=== PATIENT | male | born 1935 | race Caucasian/White ===

== ENCOUNTER 2016-05-29 06:46 | Inpatient (IN) | payer MEDICARE, OTHER ==
[~2016-05-29] VITALS: Ht 177.8 cm; Wt 119.1 kg
[~2016-05-29 06:46] MED LIST: ELIQUIS PO; INHALERS FOR ASTHMA PO
[2016-05-29] MEDS ORDERED: THROMBIN 5,000 UNIT VIAL TP ONE (07:11)
[2016-05-29] MEDS ORDERED: BACITRACIN 50,000 UNIT ONE (07:11)
[2016-05-29] MEDS ORDERED: BUPIVACAINE/PF-EPI 0.5% 1:200K ONE (07:11)
[2016-05-29] MEDS ORDERED: MIDAZOLAM 1 MG/ML, 2ML ONE (08:13)
[2016-05-29] MEDS ORDERED: FENTANYL PF 250 MCG/5ML ONE (08:14)
[2016-05-29 08:29] VITALS: BP 132/82
[2016-05-29] MEDS ORDERED: LACTATED RINGERS 1,000 ML IV SCH (08:29)
[2016-05-29] MEDS ORDERED: LIDOCAINE 1%, 2ML SQ PRN (08:30)
[2016-05-29] MEDS ORDERED: ZOLP10TA PO (08:36)
[2016-05-29] MEDS ORDERED: OXYC5CAP4 PO (08:36)
[2016-05-29] MEDS ORDERED: IPRA4AER INH (08:36)
[2016-05-29] MEDS ORDERED: MOME13HF3 INH (08:36)
[2016-05-29] MEDS ORDERED: GUAI200T3 PO (08:36)
[2016-05-29] MEDS ORDERED: APIX2.5T PO (08:36)
[2016-05-29] MEDS ORDERED: GLYCOPYRROLATE 0.2MG/1ML ONE (09:49)
[2016-05-29] MEDS ORDERED: ROCURONIUM 10 MG/ML ONE (09:49)
[2016-05-29] MEDS ORDERED: PROPOFOL 10 MG/ML, 20ML ONE (09:49)
[2016-05-29] MEDS ORDERED: CEFAZOLIN 1,000 MG ONE (09:49)
[2016-05-29] MEDS ORDERED: NEOSTIGMINE 1 MG/ML, 10ML ONE (09:49)
[2016-05-29] MEDS ORDERED: MEPERIDINE/PF 25MG/0.5ML IVPush PRN (10:00)
[2016-05-29] MEDS ORDERED: FENTANYL PF 100 MCG/2ML IV PRN (10:00)
[2016-05-29] MEDS ORDERED: ONDANSETRON 2MG/ML, 2ML IVPush PRN (10:00)
[2016-05-29] MEDS ORDERED: OXYcodone 5 MG/5 ML ORAL.SOL UDC PO PRN (10:00)
[2016-05-29] MEDS ORDERED: HYDROmorphone 1 MG/ML, 1ML IV PRN (10:00)
[2016-05-29] MEDS ORDERED: hydrALAzine 20 MG/ML, 1ML IV PRN (10:00)
[2016-05-29] MEDS ORDERED: ACETAMINOPHEN 325 MG TABLET PO PRN (10:00)
[2016-05-29] MEDS ORDERED: PROMETHAZINE 25 MG/ML, 1ML IV PRN (10:00)
[2016-05-29] MEDS ORDERED: METOCLOPRAMIDE 5 MG/ML, 2ML IV PRN (10:00)
[2016-05-29] MEDS ORDERED: FENTANYL PF 100 MCG/2ML ONE (11:50)
[2016-05-29 12:54] LABS: IS PT STATUS REG ER OR PRE ER? NO
[2016-05-29] MEDS ORDERED: METHOCARBAMOL 750 MG TABLET PO PRN (14:30)
[2016-05-29] MEDS ORDERED: DIPHENHYDRAMINE 50 MG/ML, 1ML IM PRN (14:30)
[2016-05-29] MEDS ORDERED: DIPHENHYDRAMINE 50 MG CAPSULE PO PRN (14:30)
[2016-05-29] MEDS ORDERED: OXYcodone/APAP 5/325MG TABLET PO PRN (14:30)
[2016-05-29] MEDS ORDERED: ALBUTEROL/IPRATROPIUM 2.5MG/0.5MG, 3 ML HHN PRN (14:30)
[2016-05-29] MEDS ORDERED: HYDROmorphone 2MG TABLET PO PRN (14:30)
[2016-05-29] MEDS ORDERED: ONDANSETRON 2MG/ML, 2ML IV PRN (14:30)
[2016-05-29] MEDS ORDERED: PROMETHAZINE 25 MG/ML, 1ML IM PRN (14:30)
[2016-05-29] MEDS ORDERED: MAGNESIUM HYDROXIDE 8%, 30ML UDC PO PRN (14:30)
[2016-05-29] MEDS ORDERED: HYDROmorphone 2 MG/ML, 1ML IM PRN (14:30)
[2016-05-29] MEDS ORDERED: DIPHENHYDRAMINE 50 MG/ML, 1ML IVPush PRN (14:30)
[2016-05-29] MEDS ORDERED: BISACODYL 10 MG SUPP PR PRN (14:30)
[2016-05-29 14:34] VITALS: BP 115/71
[2016-05-29] MEDS: CEFAZOLIN PMX 1GM/50ML 50 ML IVPB SCH (15:17)
[2016-05-29] MEDS: NS + 20MEQ KCL 1,000 ML IV SCH (15:17)
[2016-05-29] MEDS ORDERED: METOPROLOL TARTRATE 25 MG TABLET PO SCH (19:00)
[2016-05-29 19:19] LABS: IS PT STATUS REG ER OR PRE ER? NO
[2016-05-29 20:00] VITALS: BP 136/82
[2016-05-29] MEDS: ATORVASTATIN 20 MG TABLET PO SCH (21:24)
[2016-05-29] MEDS: GUAIFENESIN 200 MG TABLET PO SCH (21:24)
[2016-05-29] MEDS: FLUTICASONE FUROATE 100MCG/INH INH SCH (22:15)
[2016-05-30 00:03] VITALS: BP 120/76
[2016-05-30] MEDS: CEFAZOLIN PMX 1GM/50ML 50 ML IVPB SCH (00:11)
[2016-05-30] MEDS: ZOLPIDEM 10MG TABLET PO PRN ×2 (00:11→22:10)
[2016-05-30] MEDS: NS + 20MEQ KCL 1,000 ML IV SCH ×2 (03:20→17:32)
[2016-05-30 03:30] VITALS: BP 134/82
[2016-05-30 07:33] VITALS: BP 124/72
[2016-05-30] MEDS ORDERED: ASPIRIN 325 MG TABLET PO SCH (09:00)
[2016-05-30] MEDS: SENNA/DOCUSATE TABLET PO SCH (09:46)
[2016-05-30] MEDS: METOPROLOL TARTRATE 25 MG TABLET PO SCH ×2 (09:46→17:32)
[2016-05-30] MEDS: GUAIFENESIN 200 MG TABLET PO SCH ×2 (09:46→21:09)
[2016-05-30 13:49] VITALS: BP 149/81
[2016-05-30] MEDS ORDERED: METOPROLOL TARTRATE 25 MG TABLET PO SCH (18:00)
[2016-05-30 19:07] VITALS: BP 117/73
[2016-05-30] MEDS: FLUTICASONE FUROATE 100MCG/INH INH SCH (21:07)
[2016-05-30] MEDS: ATORVASTATIN 20 MG TABLET PO SCH (21:09)
[2016-05-31 02:06] VITALS: BP 149/78
[2016-05-31] MEDS: NS + 20MEQ KCL 1,000 ML IV SCH (04:09)
[2016-05-31] MEDS: METOPROLOL TARTRATE 25 MG TABLET PO SCH (05:01)
[2016-05-31 06:17] LABS: BLOOD UREA NITROGEN 10 mg/dL (7-18)
[2016-05-31 07:16] VITALS: BP 135/80
[2016-05-31] MEDS: GUAIFENESIN 200 MG TABLET PO SCH (09:53)
[2016-05-31] MEDS: SENNA/DOCUSATE TABLET PO SCH (09:53)
[2016-05-31] MEDS ORDERED: OXYC-302 PO (11:33)
[2016-05-31] MEDS ORDERED: METO25TA35 PO (11:49)
== END 2016-05-31 11:58 | disposition home or self-care (01) | DRG 516 ==
LOC: OUT 06:46 → 5SO 14:09 → OUT 14:10 → 5SO 14:11 → DCLOUNGE 05-31 11:23
PROVIDERS: ADMIT Neurological Surgery; ATTEND Neurological Surgery
PROC: 01NB0ZZ Release Lumbar Nerve, Open Approach (ICD-10-PCS; principal; 2016-05-29 10:00)
DX: M48.06 Spinal stenosis, lumbar region (principal); I47.2 Ventricular tachycardia; M47.896 Other spondylosis, lumbar region; I10 Essential (primary) hypertension; I25.10 Atherosclerotic heart disease of native coronary artery without angina pectoris; J44.9 Chronic obstructive pulmonary disease, unspecified; R10.13 Epigastric pain; M19.90 Unspecified osteoarthritis, unspecified site; I25.5 Ischemic cardiomyopathy; Z79.01 Long term (current) use of anticoagulants; Z86.718 Personal history of other venous thrombosis and embolism; Z87.891 Personal history of nicotine dependence; Z88.0 Allergy status to penicillin; Z88.8 Allergy status to other drugs, medicaments and biological substances; Z91.041 Radiographic dye allergy status
CPT/HCPCS: 36415; 72110; 80048; 84484; 93005; C8929; J0690; J2250; J2270; J2704; J2710; J3010; J3480; J3490; J7120

== ENCOUNTER → 2020-08-18 | Outpatient (CLI) | payer OTHER ==
[~2020-08-18] MED LIST changes: +ALPRazolam 1MG TAB ONE; +APIX2.5T PO; +GUAI200T37 PO; +IPRA4AER INH; +METO25TA35 PO; +MOME13HF3 INH; +OXYC1TAB14 PO; +OXYC5CAP2 PO; +ZOLP10TA PO
== END | disposition home or self-care (01) ==
LOC: RAD 10:28
PROVIDERS: ATTEND Family Medicine
DX: M47.817 Spondylosis without myelopathy or radiculopathy, lumbosacral region (principal); M51.36 Other intervertebral disc degeneration, lumbar region; M48.07 Spinal stenosis, lumbosacral region; M54.5 Low back pain; N28.1 Cyst of kidney, acquired
CPT/HCPCS: 72148